=== PATIENT | male | born 1975 | race Caucasian/White ===

== ENCOUNTER 2020-12-08 21:16 | Emergency (ER) | payer BC ==
[~2020-12-08] VITALS: Ht 175.3 cm; Wt 77.3 kg
[2020-12-08 21:23] VITALS: BP 138/91
== END 2020-12-08 22:01 | disposition left against medical advice (07) ==
LOC: EMS 21:19
DX: R51.9 Headache, unspecified (principal); Z53.21 Procedure and treatment not carried out due to patient leaving prior to being seen by health care provider

== ENCOUNTER 2020-12-11 02:12 | Emergency (ER) | payer BC | END 2020-12-11 03:16 | disposition left against medical advice (07) | LOC: EMS 02:13 | DX: Z53.21 Procedure and treatment not carried out due to patient leaving prior to being seen by health care provider (principal) ==

== ENCOUNTER 2021-01-02 06:27 | Emergency (ER) | payer BC, MEDICAID ==
[~2021-01-02] VITALS: Ht 175.3 cm; Wt 77.3 kg
[2021-01-02 06:49] VITALS: BP 142/94
== END 2021-01-02 07:03 | disposition home or self-care (01) ==
LOC: EMS 06:27
DX: R13.10 Dysphagia, unspecified (principal); R22.1 Localized swelling, mass and lump, neck; M54.2 Cervicalgia; F17.210 Nicotine dependence, cigarettes, uncomplicated; F19.90 Other psychoactive substance use, unspecified, uncomplicated; Z88.1 Allergy status to other antibiotic agents; Z88.8 Allergy status to other drugs, medicaments and biological substances
CPT/HCPCS: 99283

== ENCOUNTER 2022-03-17 15:53 | Emergency (ER) | payer MEDICAID ==
[~2022-03-17] VITALS: Ht 175.3 cm; Wt 73.6 kg
[2022-03-17 16:06] VITALS: BP 140/92
[2022-03-17] MEDS ORDERED: DOXY-354 PO (17:31)
== END 2022-03-17 17:54 | disposition home or self-care (01) ==
LOC: EMS 15:54
DX: L03.113 Cellulitis of right upper limb (principal); L02.511 Cutaneous abscess of right hand; I10 Essential (primary) hypertension; F15.90 Other stimulant use, unspecified, uncomplicated; Z88.8 Allergy status to other drugs, medicaments and biological substances
CPT/HCPCS: 99283

== ENCOUNTER 2023-01-04 13:07 | Emergency (ER) | payer BC, MEDICAID ==
[~2023-01-04] VITALS: Ht 175.3 cm; Wt 72.7 kg
[~2023-01-04 13:07] MED LIST: DOXY-354 PO
[2023-01-04] MEDS ORDERED: [UNRECOGNIZED DRUG - OTHER] PO (13:11)
[2023-01-04 15:47] VITALS: BP 145/87
== END 2023-01-04 15:52 | disposition home or self-care (01) ==
LOC: EMS 13:18
DX: S01.91XA Laceration without foreign body of unspecified part of head, initial encounter (principal); I10 Essential (primary) hypertension; F17.210 Nicotine dependence, cigarettes, uncomplicated; F15.90 Other stimulant use, unspecified, uncomplicated; Z88.2 Allergy status to sulfonamides; Z88.8 Allergy status to other drugs, medicaments and biological substances; W01.0XXA Fall on same level from slipping, tripping and stumbling without subsequent striking against object, initial encounter; Y93.89 Activity, other specified; Y92.89 Other specified places as the place of occurrence of the external cause; Y99.8 Other external cause status
CPT/HCPCS: 99281; Z7502

== ENCOUNTER 2024-04-12 17:29 | Emergency (ER) | payer BC, MEDICAID ==
[~2024-04-12] VITALS: Ht 175.3 cm; Wt 72.7 kg
[~2024-04-12 17:29] MED LIST changes: -DOXY-354 PO; +[UNRECOGNIZED DRUG - OTHER] PO
[2024-04-12 17:33] VITALS: BP 128/84; PULSE 78; RESP 18; TEMP 97.8; O2SAT 99
[2024-04-12] MEDS ORDERED: ELVI1TAB3 PO (17:35)
== END 2024-04-12 19:06 | disposition left against medical advice (07) ==
LOC: EMS 17:29
DX: R11.2 Nausea with vomiting, unspecified (principal); R42 Dizziness and giddiness; Z53.21 Procedure and treatment not carried out due to patient leaving prior to being seen by health care provider